=== PATIENT | female | born 1940 | race Caucasian/White ===

== ENCOUNTER 2020-05-07 18:33 | Emergency (ER) | payer OTHER, MEDICAID ==
[~2020-05-07] VITALS: Ht 157.5 cm; Wt 67.3 kg
[~2020-05-07 18:33] MED LIST: HYDR-4383 PO; METH-360 PO
[2020-05-07 18:35] VITALS: BP 193/63
--- NOTE | 2020-05-07 20:35 | NUR ---
called pt daughter win [phone] to come and get pt. she states she is on her way
== END 2020-05-07 20:41 | disposition home or self-care (01) ==
LOC: ER 18:34
DX: S90.32XA Contusion of left foot, initial encounter (principal); I50.9 Heart failure, unspecified; J44.9 Chronic obstructive pulmonary disease, unspecified; M19.90 Unspecified osteoarthritis, unspecified site; Z90.49 Acquired absence of other specified parts of digestive tract; Z88.0 Allergy status to penicillin; Z88.2 Allergy status to sulfonamides; Z88.8 Allergy status to other drugs, medicaments and biological substances; Z79.899 Other long term (current) drug therapy; W04.XXXA Fall while being carried or supported by other persons, initial encounter; Y93.89 Activity, other specified; Y92.89 Other specified places as the place of occurrence of the external cause; Y99.8 Other external cause status
CPT/HCPCS: 36415; 73630; 85610; 99284

== ENCOUNTER 2020-06-07 14:41 | Emergency (ER) | payer OTHER, MEDICAID ==
[~2020-06-07] VITALS: Ht 157.5 cm; Wt 66.4 kg
[2020-06-07 15:28] LABS: BASOPHILS # (AUTO) 0.1 X10'3 (0-0.2); BASOPHILS % (AUTO) 1.1 % (0-1); EOSINOPHILS # (AUTO) 0.1 X10'3 (0-0.9); EOSINOPHILS % (AUTO) 1.1 % (0-6); HEMATOCRIT 43.3 % (35.0-45.0); LYMPHOCYTES # (AUTO) 1.6 X10'3 (1.1-4.8); LYMPHOCYTES % (AUTO) 24.3 % (21-51); MEAN CORPUSCULAR HEMOGLOBIN 30.8 PG (27.0-31.0); MEAN CORPUSCULAR HGB CONC 32.4 g/dL (33.0-36.5); MEAN PLATELET VOLUME 8.1 FL (7.4-10.4); MONOCYTES # (AUTO) 0.5 X10'3 (0-0.9); MONOCYTES % (AUTO) 7.2 % (2-12); NEUTROPHILS # (AUTO) 4.3 X10'3 (1.8-7.7); NEUTROPHILS % (AUTO) 66.3 % (42-75); PLATELET COUNT 172 X10'3 (140-440); RED BLOOD COUNT 4.56 X10'6 (4.20-5.60); RED CELL DISTRIBUTION WIDTH 13.4 % (11.5-14.5); WHITE BLOOD COUNT 6.5 X10'3 (4.5-11.0)
[2020-06-07 15:40] LABS: ALANINE AMINOTRANSFERASE 25 U/L (12-78); ALBUMIN 3.4 G/DL (3.4-5.0); ALBUMIN/GLOBULIN RATIO 0.8 (1.1-1.5); ALKALINE PHOSPHATASE 87 IU/L (46-116); ANION GAP 2 (8-16); ASPARTATE AMINO TRANSFERASE 23 U/L (10-37); BILIRUBIN,TOTAL 0.5 MG/DL (0.1-1.0); BLOOD UREA NITROGEN 10 MG/DL (7-18); BUN/CREATININE RATIO 8.3 (6.6-38.0); CHLORIDE 103 MMOL/L (99-107); LIPASE 111 U/L (73-393); POTASSIUM 4.4 MMOL/L (3.5-5.1); SODIUM 137 MMOL/L (135-145); TOTAL CARBON DIOXIDE 31.7 MMOL/L (24-32); TOTAL PROTEIN 7.7 G/DL (6.4-8.2); eGFR 44 ML/MIN
[2020-06-07 15:41] LABS: GLUCOSE 208 MG/DL (70-104)
[2020-06-07 18:30] LABS: CLARITY,URINE CLEAR (Clear); COLOR,URINE STRAW (Yellow); GLUCOSE, URINE NEGATIVE (Neg); KETONES,URINE NEGATIVE (Neg); LEUKOCYTE ESTERASE ,URINE NEGATIVE (Neg); NITRITES, URINE NEGATIVE (Neg); OCCULT BLOOD,URINE MODERATE (Neg); PH,URINE 6.5 (4.8-8.0); PROTEIN,URINE NEGATIVE (Neg); UROBILINOGEN,URINE 0.2 E.U/dL (0.2-1.0)
[2020-06-07 18:43] LABS: UA COLLECTION TYPE OTHER
[2020-06-07 19:05] LABS: BACTERIA,URINE NONE SEEN /HPF (Neg); MUCUS STRANDS NONE SEEN /LPF (Neg); SQUAMOUS EPITHELIAL CELL,UR FEW /LPF (FEW); WBC,URINE 0-4 /HPF (0-4)
[2020-06-07] MEDS ORDERED: HYDR-3965 PO (19:49)
[2020-06-07] MEDS ORDERED: ONDA4TAB12 PO (19:49)
[2020-06-07 20:20] VITALS: BP 149/79
== END 2020-06-07 20:22 | disposition home or self-care (01) ==
LOC: ER 14:42
DX: R10.9 Unspecified abdominal pain (principal); R11.0 Nausea; I50.9 Heart failure, unspecified; J44.9 Chronic obstructive pulmonary disease, unspecified; M19.90 Unspecified osteoarthritis, unspecified site; Z90.49 Acquired absence of other specified parts of digestive tract; Z88.0 Allergy status to penicillin; Z88.2 Allergy status to sulfonamides; Z88.8 Allergy status to other drugs, medicaments and biological substances; Z79.899 Other long term (current) drug therapy
CPT/HCPCS: 36415; 74176; 80053; 81001; 83690; 85025; 99284; 99285

== ENCOUNTER 2023-09-03 15:06 | Emergency (ER) | payer OTHER, MEDICAID ==
[~2023-09-03] VITALS: Ht 170.2 cm; Wt 62.4 kg
[~2023-09-03 15:06] MED LIST changes: +ONDA4TAB12 PO
[2023-09-03 15:08] VITALS: TEMP 98.1
[2023-09-03] MEDS ORDERED: oxyCODONE/APAP 10/325mg tablet PO ONE (15:55)
[2023-09-03] MEDS ORDERED: HYDROcodone/acetaminophen 10/325mg tab PO ONE (16:05)
[2023-09-03 17:54] VITALS: BP 143/73; PULSE 88; RESP 16; O2SAT 95
== END 2023-09-03 17:37 | disposition home or self-care (01) ==
LOC: ER 15:07
DX: M53.3 Sacrococcygeal disorders, not elsewhere classified (principal); I50.9 Heart failure, unspecified; J44.9 Chronic obstructive pulmonary disease, unspecified; M19.90 Unspecified osteoarthritis, unspecified site; Z88.0 Allergy status to penicillin; Z88.2 Allergy status to sulfonamides; Z88.8 Allergy status to other drugs, medicaments and biological substances; Z79.899 Other long term (current) drug therapy; Z90.49 Acquired absence of other specified parts of digestive tract
CPT/HCPCS: 72220; 99284

== ENCOUNTER 2023-12-22 07:30 | Inpatient (IN) | payer OTHER, MEDICAID ==
[~2023-12-22] VITALS: Ht 157.5 cm; Wt 59.0 kg
[2023-12-22 08:18] LABS: BASOPHILS # (AUTO) 0.1 X10'3 (0-0.2); EOSINOPHILS # (AUTO) 0.2 X10'3 (0-0.9); HEMATOCRIT 42.1 % (35.0-45.0); MEAN PLATELET VOLUME 8.5 FL (7.4-10.4); MONOCYTES # (AUTO) 0.5 X10'3 (0-0.9); NEUTROPHILS # (AUTO) 2.2 X10'3 (1.8-7.7); NEUTROPHILS % (AUTO) 45.6 % (42-75); WHITE BLOOD COUNT 4.8 X10'3 (4.5-11.0)
[2023-12-22 08:20] LABS: BASOPHILS % (AUTO) 1.4 % (0-1); EOSINOPHILS % (AUTO) 3.6 % (0-6); HEMOGLOBIN 13.7 g/dl (12.0-16.0); LYMPHOCYTES # (AUTO) 1.9 X10'3 (1.1-4.8); LYMPHOCYTES % (AUTO) 39.7 % (21-51); MEAN CORPUSCULAR HEMOGLOBIN 31.9 PG (27.0-31.0); MEAN CORPUSCULAR HGB CONC 32.6 g/dL (33.0-36.5); MEAN CORPUSCULAR VOLUME 97.9 FL (78-98); MONOCYTES % (AUTO) 9.7 % (2-12); PLATELET COUNT 191 X10'3 (140-440); RED CELL DISTRIBUTION WIDTH 13.2 % (11.5-14.5)
[2023-12-22] MEDS: mag hydrox/Alum hydrox/simeth 30ml oral suspension PO ONE (08:22)
[2023-12-22] MEDS: pantoprazole 40 MG vial IV STA (08:23)
[2023-12-22 08:33] LABS: ALBUMIN 3.3 G/DL (3.4-5.0); ANION GAP 2 (8-16); BLOOD UREA NITROGEN 10 MG/DL (7-18); BUN/CREATININE RATIO 11.6 (10.0-20.0); CALCIUM 9.5 MG/DL (8.5-10.1); CHLORIDE 107 MMOL/L (99-107); CREATININE 0.86 MG/DL (0.40-0.90); POTASSIUM 4.5 MMOL/L (3.5-5.1); PRO BRAIN NATRIURETIC PEPTIDE 1215 PG/ML (0-450); SODIUM 140 MMOL/L (135-145); TOTAL CARBON DIOXIDE 30.8 MMOL/L (24-32); eCRCL 41 ML/MIN; eGFR 63 ML/MIN
[2023-12-22 08:36] LABS: GLUCOSE 104 MG/DL (70-104)
[2023-12-22 09:18] LABS: APTT 31 SECONDS (22-32); INR 1.5 INR; PROTHROMBIN TIME 16.2 SECONDS (9.0-12.0)
[2023-12-22] MEDS: ondansetron/PF 4mg/2ml inj IV ONE (09:47)
[2023-12-22] MEDS: morphine 2 MG/ML inj. syringe IV PRN (09:48)
[2023-12-22] MEDS ORDERED: ondansetron/PF 4mg/2ml inj IV PRN (10:15)
[2023-12-22] MEDS ORDERED: magnesium 2GM in 50ml NS 50 ML IV PRN (10:15)
[2023-12-22] MEDS ORDERED: magnesium 4gm in 100ml NS 100 ML IV PRN (10:15)
[2023-12-22] MEDS ORDERED: HYDROcodone/acetaminophen 5mg/325mg tablet PO PRN (10:15)
[2023-12-22] MEDS ORDERED: acetaminophen 325mg tablet PO PRN ×2 (10:15)
[2023-12-22] MEDS ORDERED: potassium Cl 40MEQ/1/2NS 520ml 520 ML IV PRN (10:15)
[2023-12-22] MEDS ORDERED: morphine 2 MG/ML inj. syringe IV PRN ×2 (10:15)
[2023-12-22] MEDS ORDERED: magnesium Cl slow-release 64mg tablet PO PRN (10:15)
[2023-12-22] MEDS ORDERED: heparin 10,000 units/1 ML INJ IV PRN (10:15)
[2023-12-22] MEDS ORDERED: potassium Cl 20 mEq SR tablet PO PRN ×2 (10:15)
[2023-12-22] MEDS: heparin 10,000 units/1 ML INJ IV ONE (10:43)
[2023-12-22] MEDS: normal saline 1000ml 1,000 ML IV SCH ×2 (10:45→11:07)
[2023-12-22] MEDS: heparin 25,000 UNIT/250ml bag 250 ML IV PRN (10:45)
[2023-12-22] MEDS: HYDROcodone/acetaminophen 10/325mg tab PO PRN (13:35)
[2023-12-22] MEDS ORDERED: GABA-530 PO (13:41)
[2023-12-22] MEDS ORDERED: WARF1TAB83 PO (13:41)
[2023-12-22] MEDS ORDERED: PANT40TA54 PO (13:41)
[2023-12-22] MEDS ORDERED: LISI20TA28 PO (13:41)
[2023-12-22] MEDS ORDERED: MIRT-87 PO (13:41)
[2023-12-22] MEDS ORDERED: MONT-40 PO (13:41)
[2023-12-22 15:00] VITALS: BP 110/77; PULSE 73; RESP 13; TEMP 97.6; O2SAT 96
[2023-12-22] MEDS: heparin, porcine 5000 units/ml vial SQ SCH (16:28)
[2023-12-22 16:36] VITALS: RESP 14; O2SAT 96
[2023-12-22 18:00] VITALS: BP 129/47; PULSE 71; RESP 13; TEMP 98.8; O2SAT 93
[2023-12-22 20:00] VITALS: RESP 16; O2SAT 93
[2023-12-22] MEDS: gabapentin 100mg capsule PO SCH (20:03)
[2023-12-22] MEDS: carVEDilol 3.125mg tablet PO SCH (20:04)
[2023-12-22] MEDS: pantoprazole 40mg Tablet.DR PO SCH (20:04)
[2023-12-22] MEDS ORDERED: temazepam 15mg capsule PO PRN (21:00)
[2023-12-22 22:00] VITALS: BP 141/53; PULSE 63; RESP 14; TEMP 99.5; O2SAT 98
[2023-12-23 02:51] VITALS: BP 116/34; PULSE 64; RESP 14; TEMP 97.9; O2SAT 94
[2023-12-23 06:00] VITALS: BP 131/66; PULSE 67; RESP 14; TEMP 98.1; O2SAT 100
[2023-12-23 06:24] LABS: EOSINOPHILS # (AUTO) 0.2 X10'3 (0-0.9); EOSINOPHILS % (AUTO) 3.8 % (0-6); HEMOGLOBIN 12.8 g/dl (12.0-16.0); LYMPHOCYTES # (AUTO) 2.3 X10'3 (1.1-4.8); LYMPHOCYTES % (AUTO) 49.8 % (21-51); MEAN CORPUSCULAR HEMOGLOBIN 31.8 PG (27.0-31.0); MEAN CORPUSCULAR HGB CONC 32.1 g/dL (33.0-36.5); MEAN CORPUSCULAR VOLUME 99.1 FL (78-98); MEAN PLATELET VOLUME 8.6 FL (7.4-10.4); MONOCYTES # (AUTO) 0.4 X10'3 (0-0.9); MONOCYTES % (AUTO) 8.8 % (2-12); NEUTROPHILS # (AUTO) 1.7 X10'3 (1.8-7.7); NEUTROPHILS % (AUTO) 36.6 % (42-75); PLATELET COUNT 161 X10'3 (140-440); RED BLOOD COUNT 4.04 X10'6 (4.20-5.60); RED CELL DISTRIBUTION WIDTH 13.5 % (11.5-14.5); WHITE BLOOD COUNT 4.6 X10'3 (4.5-11.0)
[2023-12-23 06:36] LABS: ALANINE AMINOTRANSFERASE 20 U/L (12-78); ALBUMIN 2.7 G/DL (3.4-5.0); ALBUMIN/GLOBULIN RATIO 0.8 (1.1-1.5); ALKALINE PHOSPHATASE 69 IU/L (46-116); ANION GAP 5 (8-16); ASPARTATE AMINO TRANSFERASE 68 U/L (10-37); BILIRUBIN,TOTAL 0.4 MG/DL (0.1-1.0); BLOOD UREA NITROGEN 5 MG/DL (7-18); BUN/CREATININE RATIO 6.3 (10.0-20.0); CALCIUM 9.2 MG/DL (8.5-10.1); CHLORIDE 111 MMOL/L (99-107); CREATININE 0.79 MG/DL (0.40-0.90); POTASSIUM 4.5 MMOL/L (3.5-5.1); SODIUM 144 MMOL/L (135-145); TOTAL CARBON DIOXIDE 27.8 MMOL/L (24-32); TOTAL PROTEIN 6.1 G/DL (6.4-8.2); eCRCL 44 ML/MIN; eGFR 70 ML/MIN
[2023-12-23 06:43] LABS: GLUCOSE 83 MG/DL (70-104)
[2023-12-23] MEDS: lisinopril 20mg tablet PO SCH (07:37)
[2023-12-23 08:00] VITALS: RESP 13; O2SAT 100
[2023-12-23] MEDS: montelukast 10mg tablet PO SCH (09:21)
[2023-12-23] MEDS ORDERED: ASPI-1265 PO (10:53)
[2023-12-23] MEDS ORDERED: PANT40TA54 PO (10:53)
[2023-12-23] MEDS ORDERED: COR3.125T PO (10:53)
[2023-12-23 11:00] VITALS: BP 128/96; PULSE 98; RESP 17; TEMP 97.5; O2SAT 95
== END 2023-12-23 15:13 | disposition home or self-care (01) | DRG 280 ==
LOC: ER 07:30 → ED HOLD 10:17 → PCU 3S 14:52
PROVIDERS: ADMIT Internal Medicine; ATTEND Internal Medicine
DX: I21.4 Non-ST elevation (NSTEMI) myocardial infarction (principal); I50.31 Acute diastolic (congestive) heart failure; K21.9 Gastro-esophageal reflux disease without esophagitis; J44.9 Chronic obstructive pulmonary disease, unspecified; M81.0 Age-related osteoporosis without current pathological fracture; G89.29 Other chronic pain; I73.9 Peripheral vascular disease, unspecified; Z88.2 Allergy status to sulfonamides; Z87.11 Personal history of peptic ulcer disease; Z88.8 Allergy status to other drugs, medicaments and biological substances; Z90.49 Acquired absence of other specified parts of digestive tract; Z91.048 Other nonmedicinal substance allergy status; Z88.0 Allergy status to penicillin; Z86.711 Personal history of pulmonary embolism; Z79.01 Long term (current) use of anticoagulants; Z79.899 Other long term (current) drug therapy; Z86.718 Personal history of other venous thrombosis and embolism; Z91.041 Radiographic dye allergy status
CPT/HCPCS: 36415; 71045; 80048; 80053; 83880; 84484; 85025; 85610; 85730; 87081; 93005; 93306; 97116; 97161; 97530; 99285; C9113; G0378; J1644; J2270; J2405; J7030